=== PATIENT | male | born 1950 | race Caucasian/White ===

== ENCOUNTER 2018-05-28 07:50 | Day surgery (SDC) | payer MEDICARE, OTHER ==
[2018-05-28] MEDS ORDERED: PROPOFOL 500 MG/50 ML EMU IV ONE (08:03)
[2018-05-28] MEDS ORDERED: LIDOCAINE HCL 1% 5 ML ONE (08:03)
[2018-05-28 09:42] VITALS: BP 114/78; PULSE 66; RESP 18; TEMP 97.4; O2SAT 94
== END 2018-05-28 10:03 | disposition home or self-care (01) | DRG 951 ==
LOC: SURG 07:50
PROVIDERS: ATTEND Surgery
DX: Z12.11 Encounter for screening for malignant neoplasm of colon (principal); R73.03 Prediabetes; Z86.010 Personal history of colon polyps
CPT/HCPCS: G0105; J2704

== ENCOUNTER 2018-07-26 15:07 | Inpatient (IN) | payer MEDICARE, OTHER ==
[2018-07-26] MEDS ORDERED: CEFAZOLIN (PREMIX) 1 GM 1 GM/50 ML SOL IV ONE (15:16)
[2018-07-26] MEDS ORDERED: ONDANSETRON HCL 4 MG/2 ML SOL IV ONE (15:16)
[2018-07-26 15:46] LABS: LACTIC ACID 3.6 mMol/L (0.0-2.0)
[2018-07-26 15:51] LABS: HEMATOCRIT 56 % (39-53); MEAN CORPUSCULAR HEMOGLOBIN 30.1 pg (27.0-32.0); MEAN CORPUSCULAR HGB CONC 32.3 gm/dl (32.0-36.0); MEAN CORPUSCULAR VOLUME 93 fL (80-100)
[2018-07-26 15:56] LABS: CALCIUM 8.8 mg/dl (8.5-10.1); CARBON DIOXIDE 24.3 mEq/L (21-32); CREATININE 1.78 mg/dl (0.80-1.30); CRP INFLAMMATORY 2.94 mg/dl (0.00-0.33); HEMOGLOBIN 18.1 gm/dl (13.5-17.7)
[2018-07-26] MEDS ORDERED: CEFAZOLIN SODIUM 1 GM PDS ONE (15:56)
[2018-07-26] MEDS ORDERED: ONDANSETRON HCL 4 MG/2 ML SOL ONE (15:57)
[2018-07-26] MEDS ORDERED: SODIUM CHLORIDE 0.9% 1000ML 1,000 ML IV ONE (15:59)
[2018-07-26] MEDS ORDERED: VANCOMYCIN HCL 500 MG PDS 1,500 MG in SODIUM CHLORIDE 0.9% 250 ML 250 ML IV ONE (16:00)
[2018-07-26 16:22] LABS: BAND NEUTROPHILS % (MANUAL) 20 %; BASOPHILS % (MANUAL) 0 % (0-3); EOSINOPHILS % (MANUAL) 0 % (0-9); LYMPHOCYTES % (MANUAL) 6 % (10-50); MONOCYTES % (MANUAL) 6 % (0-12); NEUTROPHILS % (MANUAL) 68 % (37-80)
[2018-07-26 16:23] LABS: NORMAL RBCS PRESENT
[2018-07-26] MEDS ORDERED: VANCOMYCIN HYDROCHLORIDE 500 MG PDS IV ONE (16:45)
[2018-07-26] MEDS ORDERED: ONDANSETRON HCL 4 MG/2 ML SOL IV PRN (17:52)
[2018-07-26] MEDS ORDERED: ACETAMINOPHEN 500 MG 500 MG TAB PO PRN (17:54)
[2018-07-26] MEDS ORDERED: ALBUTEROL HFA 60 PUFF/INHALER INH PRN (17:59)
[2018-07-26] MEDS ORDERED: PIPERACILLIN/TAZOBACT 3.375 GM 3.375 GM in SODIUM CHLORIDE 0.9% 100 ML 100 ML IV SCH (18:00)
[2018-07-26] MEDS: SODIUM CHLORIDE 0.9% 1000ML 1,000 ML IV SCH ×4 (18:00→22:26)
[2018-07-26 18:27] LABS: INR 2.16 (0.86-1.12)
[2018-07-26 18:34] LABS: ALBUMIN 3.3 gm/dl (3.4-5.0); BILIRUBIN,TOTAL 0.5 mg/dl (0.2-1.0); TOTAL PROTEIN 7.3 gm/dl (6.4-8.2)
[2018-07-26] MEDS ORDERED: PIPERACILLIN/TAZOBACT 3.375 GM PDS IV ONE (18:55)
[2018-07-26] MEDS ORDERED: SODIUM CHLORIDE 0.9% 100 ML 100 ML IV ONE (18:57)
[2018-07-26 19:22] VITALS: O2SAT 92
[2018-07-26] MEDS ORDERED: WARFARIN SODIUM 2.5 MG TAB PO SCH (19:30)
[2018-07-26 20:16] VITALS: PULSE 102
[2018-07-26] MEDS ORDERED: CLINDAMYCIN 150 MG/ML 600 MG in SODIUM CHLORIDE 0.9% 100 ML 100 ML IV ONE (20:25)
[2018-07-26] MEDS ORDERED: NOREPINEPHRINE BITARTRATE 4 MG/4 ML SOL IV ONE (20:26)
[2018-07-26] MEDS ORDERED: NOREPINEPHRINE 4 MG/4 ML 4 MG in DEXTROSE 500 ML 500 ML IV SCH (20:30)
[2018-07-26] MEDS ORDERED: CLINDAMYCIN 150 MG/ML SOL ONE (20:37)
[2018-07-26] MEDS ORDERED: SIMVASTATIN 20 MG TAB PO SCH (21:00)
[2018-07-26 21:14] VITALS: BP 85/55; RESP 10; TEMP 101.2
[2018-07-27] MEDS ORDERED: CLOPIDOGREL 75 MG TAB PO SCH (09:00)
[2018-07-27] MEDS ORDERED: FISH OIL 500 MG CAP PO SCH (09:00)
[2018-07-27] MEDS ORDERED: ASPIRIN EC 81 MG PO SCH (09:00)
[2018-07-28] MEDS ORDERED: WARFARIN SODIUM 2.5 MG TAB PO SCH (18:00)
== END 2018-07-26 20:55 | disposition short-term general hospital (02) | DRG 602 ==
LOC: ED 15:07 → ACUTE CARE 17:20 → UNDOADMIN 17:20 → ACUTE CARE 17:25
PROVIDERS: ADMIT Family Medicine; ATTEND Family Medicine
DX: L03.90 Cellulitis, unspecified (principal); L03.119 Cellulitis of unspecified part of limb; Z79.01 Long term (current) use of anticoagulants; R11.2 Nausea with vomiting, unspecified; R15.9 Full incontinence of feces; A41.9 Sepsis, unspecified organism
CPT/HCPCS: 36415; 73650; 80053; 85007; 85027; 85610; 87040; 93005; 94760; 96365; 96374; 99235; 99291; J0690; J2405; J2543; J3370; J3490; A9270-GY